=== PATIENT | male | born 1950 | race Caucasian/White ===

== ENCOUNTER 2016-09-06 15:54 | Emergency (ER) | payer BC ==
[~2016-09-06] VITALS: Ht 165.1 cm; Wt 72.5 kg
[~2016-09-06 15:54] MED LIST: CODCAP PO; FISH100020 PO; GARL10CA2 PO; LISI10TA3 PO; MULTTAB23 PO; POTA99TA PO; ROSU40 PO; XARE20TA PO
[2016-09-06 15:56] VITALS: BP 175/85; PULSE 60; RESP 20; TEMP 97.7; O2SAT 97
--- NOTE | 2016-09-06 16:32 | PD ---
Physical Exam Date Seen by Provider: Sep 06, 2016 Time Seen by Provider: 16:30 Narrative 65 year old male presents to the emergency department for evaluation of dizziness that started at approximately 2pm. He states he felt lightheaded and like he was going to have a syncopal episode, but did not. He states symptoms are improved now. He denies headache, fevers, chest pain, shortness of breath. Vital signs reviewed. Patient awaiting bed placement. Data Data Last Documented VS Vital Signs Date Time Temp Pulse Resp B/P Pulse Ox O2 Delivery O2 Flow Rate FiO2 09/06/16 15:56 97.7 60 20 175/85 97 Room Air [facility] Supervised Visit with LUIS: Stephanie Su Sep 06, 2016 16:32
--- NOTE | 2016-09-06 17:35 | PD ---
HPI Chief Complaint: Dizziness Time Seen by Provider: 17:29 Travel History International Travel<30 days: No Contact w/Intl Traveler<30days: No Traveled to known affect area: No History of Present Illness HPI Is a 65-year-old male presents emergency department for presyncopal type symptoms starting approximate 1430 and lasting until 1530. Patient states he was at work and putting some items out for display when suddenly he felt like he was going to pass out. States that he felt his vision was somewhat darker. Denies any focal weakness chest pain shortness of breath abdominal pain. Patient does relate that his lisinopril was recently increased but he was hypertensive during the symptoms. He states currently the symptoms have resolved. He is followed by Dr. Esparza and is scheduled to have an echocardiogram in a few weeks since he "has a weak spot in his heart". PFSH Past Medical History Hx Anticoagulant Therapy: Yes (xarelto--afib) Heart Rhythm Problems: Yes (a-Fib) Cardiovascular Problems: Yes (htn-resolved) Diminished Hearing: No Past Surgical History Tonsillectomy: Yes Social History Alcohol Use: No Tobacco Use: No Substance Use: No Allergies-Medications (Allergen,Severity, Reaction): Coded Allergies: Sulfa (Verified Allergy, Intermediate, rash, 09/06/16) as a child Reported Meds & Prescriptions Reported Meds & Active Scripts Active Lisinopril 10 Mg Tab 10 Mg PO BID Reported Multi For Him 50+ (Multiple Vitamins W/ Minerals) 1 Tab Tab 1 Tab PO DAILY Fish Oil 1000 mg ([place]-3 Fatty Acids) 1 Cap Cap 2,000 Mg PO DAILY Potassium 99 Mg Tab 99 Mg PO DAILY Cod Liver Oil 1 Cap 2 Cap PO DAILY Xarelto (Rivaroxaban) 20 Mg Tab 20 Mg PO HS Crestor (Rosuvastatin Calcium) 40 Mg Tab 40 Mg PO HS Review of Systems Except as stated in HPI: all other systems reviewed are Neg Physical Exam Narrative GENERAL: Developed well-nourished no apparent distress. SKIN: Focused skin assessment warm/dry. HEAD: Atraumatic. Normocephalic. EYES: Pupils equal and round. No scleral icterus. No injection or drainage. ENT: No nasal bleeding or discharge. Mucous membranes pink and moist. NECK: Trachea midline. No JVD. CARDIOVASCULAR: Irregularly irregular and bradycardic. No murmur appreciated. No edema, 2+ bilateral equal pulses in all 4 extremities. RESPIRATORY: No accessory muscle use. Clear to auscultation. Breath sounds equal bilaterally. GASTROINTESTINAL: Abdomen soft, non-tender, nondistended. Hepatic and splenic margins not palpable. MUSCULOSKELETAL: No obvious deformities. No clubbing. No cyanosis. No edema. NEUROLOGICAL: Alert and awake and oriented. Cranial nerves II through XII are grossly intact and nonfocal, 5 out of 5 strength in all 4 extremity's. Cerebellar testing normal. Sensory intact in all 4 extremity's. PSYCHIATRIC: Appropriate mood and affect; insight and judgment normal. Data Data Last Documented VS Vital Signs Date Time Temp Pulse Resp B/P Pulse Ox O2 Delivery O2 Flow Rate FiO2 09/06/16 20:00 56 16 140/71 96 09/06/16 17:50 Room Air 09/06/16 15:56 97.7 Orders Electrocardiogram (09/06/16 ) Ckmb (Isoenzyme) Profile (09/06/16 17:46) Complete Blood Count With Diff (09/06/16 17:46) Comprehensive Metabolic Panel (09/06/16 17:46) Magnesium (Mg) (09/06/16 17:46) Prothrombin Time / Inr (Pt) (09/06/16 17:46) Act Partial Throm Time (Ptt) (09/06/16 17:46) Troponin I (09/06/16 17:46) Chest, Single Ap (09/06/16 17:46) Ecg Monitoring (09/06/16 17:46) Bilateral Bp Monitoring (09/06/16 17:46) Iv Access Insert/Monitor (09/06/16 17:46) Oximetry (09/06/16 17:46) Oxygen Administration (09/06/16 17:46) Sodium Chloride 0.9% Flush (Ns Flush) (09/06/16 18:00) Labs Laboratory Tests Test 09/06/16 17:50 White Blood Count 7.6 TH/MM3 Red Blood Count 4.65 MIL/MM3 Hemoglobin 14.2 GM/DL Hematocrit 43.0 % Mean Corpuscular Volume 92.4 FL Mean Corpuscular Hemoglobin 30.5 PG Mean Corpuscular Hemoglobin 33.0 % Concent Red Cell Distribution Width 13.5 % Platelet Count 142 TH/MM3 Mean Platelet Volume 9.2 FL Neutrophils (%) (Auto) 68.1 % Lymphocytes (%) (Auto) 18.0 % Monocytes (%) (Auto) 11.0 % Eosinophils (%) (Auto) 2.0 % Basophils (%) (Auto) 0.9 % Neutrophils # (Auto) 5.2 TH/MM3 Lymphocytes # (Auto) 1.4 TH/MM3 Monocytes # (Auto) 0.8 TH/MM3 Eosinophils # (Auto) 0.1 TH/MM3 Basophils # (Auto) 0.1 TH/MM3 CBC Comment DIFF FINAL Differential Comment Prothrombin Time 11.4 SEC Prothromb Time International 1.0 RATIO Ratio Activated Partial 25.8 SEC Thromboplast Time Sodium Level 144 MEQ/L Potassium Level 3.9 MEQ/L Chloride Level 110 MEQ/L Carbon Dioxide Level 26.9 MEQ/L Anion Gap 7 MEQ/L Blood Urea Nitrogen 19 MG/DL Creatinine 0.94 MG/DL Estimat Glomerular Filtration 80 ML/MIN Rate Random Glucose 93 MG/DL Calcium Level 9.1 MG/DL Magnesium Level 2.2 MG/DL Total Bilirubin 0.3 MG/DL Aspartate Amino Transf 17 U/L (AST/SGOT) Alanine Aminotransferase 27 U/L (ALT/SGPT) Alkaline Phosphatase 101 U/L Total Creatine Kinase 76 U/L Troponin I 0.03 NG/ML Total Protein 6.7 GM/DL Albumin 3.5 GM/DL MDM Medical Decision Making Medical Screen Exam Complete: Yes Emergency Medical Condition: Yes Interpretation(s) EKG shows age fibrillation with left bundle branch block, left axis deviation and poor R-wave progression. No Torey's criteria. Overall rate is 46. QTC is at upper limits of normal. Comparison to 04/23/2016 today's EKG is slower otherwise no change. This abnormal EKG. Differential Diagnosis ACS, AMI, CHF, presyncope, anemia, electro-light abnormality. Narrative Course Patient was roomed in the emergency department, significant findings of abnormal EKG with bradycardia nature fibrillation and conduction abnormality. No ischemia visible on EKG and other than a slower rate no change from previous. Patient does have cardiomegaly on chest x-ray without acute pleural effusion. He appears well and in no apparent distress at this time. Troponin negative elect lites within normal limits CBC normal. His cousin the patient that given his cardiac history and his symptomology would recommend having an echocardiogram. Patient states he has an appointment in 6 days for an outpatient echocardiogram for his cardiology is Dr. Esparza. Discussed that waiting until having this echocardiogram may put him at risks of major adverse cardiac event and the risk of and permanent disability comes with it. Patient verbalized understanding and acceptance this risk and would like to follow up outpatient with his senior integration developer and do an outpatient echocardiogram. I think this is reasonable as it is short-term follow-up discussed with the patient that if any of his symptoms should recur that he should come back to the emergent department for evaluation or consider calling 911. He will be discharged home as he understands the risk he is taking. Discussed my recommendation for following up with Dr. Esparza and an earlier interval and calling him as soon as possible for follow-up. Diagnosis Primary Impression: Near syncope Additional Instructions: Recommend he call Dr. Esparza in your primary care provider tomorrow. If you have any chest pain and any shortness of breath any fatigue any weakness any additional blackout like symptoms I encouraged her strongly to return to the emergency department for further evaluation. Disposition: 01 DISCHARGE HOME Condition: Stable Mike Erickson MD Sep 06, 2016 17:35
[2016-09-06 17:50] VITALS: BP_SYST 145; BP_SYST 174; BP_DIAS 74; BP_DIAS 86; PULSE 52; RESP 16; O2SAT 98
[2016-09-06] MEDS ORDERED: SODIUM CHLORIDE 0.9% FLUSH 10 ML FLUSH IVF PRN (18:00)
[2016-09-06 18:23] LABS: AUTOMATED NEUTROPHIL # 5.2 TH/MM3 (1.8-7.7); BASOPHIL # 0.1 TH/MM3 (0-0.2); BASOPHIL % 0.9 % (0.0-2.0); EOSINOPHIL # 0.1 TH/MM3 (0-0.4); HEMO FLAGS DIFF FINAL; LYMPHOCYTE # 1.4 TH/MM3 (1.0-4.8); MEAN CELL VOLUME 92.4 FL (80.0-100.0); MEAN CORPUSCULAR HEMOGLOBIN 30.5 PG (27.0-34.0); NEUT % 68.1 % (16.0-70.0); PLATELET COUNT 142 TH/MM3 (150-450); RED BLOOD COUNT 4.65 MIL/MM3 (4.50-5.90); RED CELL DISTRIBUTION WIDTH 13.5 % (11.6-17.2); WHITE BLOOD COUNT 7.6 TH/MM3 (4.0-11.0)
[2016-09-06 18:50] LABS: APTT (PATIENT) 25.8 SEC (24.3-30.1); PROTHROMBIN TIME - PATIENT 11.4 SEC (9.8-11.6)
[2016-09-06 19:04] LABS: ANION GAP 7 MEQ/L (5-15); AST (GOT) 17 U/L (15-37); BICARBONATE 26.9 MEQ/L (21.0-32.0); BLOOD UREA NITROGEN 19 MG/DL (7-18); CHLORIDE 110 MEQ/L (98-107); GLOMERULAR FILTRATION RATE 80 ML/MIN (>89); MAGNESIUM 2.2 MG/DL (1.5-2.5); POTASSIUM 3.9 MEQ/L (3.5-5.1); SODIUM (NA) 144 MEQ/L (136-145)
[2016-09-06 19:09] LABS: ALKALINE PHOSPHATASE 101 U/L (45-117); ALT (GPT) 27 U/L (12-78); TOTAL BILIRUBIN ADULT 0.3 MG/DL (0.2-1.0)
[2016-09-06 19:10] LABS: CREATINE KINASE 76 U/L (39-308)
--- NOTE | 2016-09-06 19:47 | RADRPT ---
EXAM DATE/TIME: 09/06/2016 18:11 [facility] COMPARISON: CHEST PA & LAT, April 23, 2016, 14:53. INDICATIONS : Syncope. MEDICAL HISTORY : None. SURGICAL HISTORY : None. ENCOUNTER: Initial ACUITY: 1 day PAIN SCORE: 0/10 LOCATION: Bilateral chest FINDINGS: A single view of the chest demonstrates the lungs to be symmetrically aerated without evidence of mas s, infiltrate or effusion. The cardiomediastinal contours are unremarkable. Osseous structures are intact. CONCLUSION: No acute disease. Krishan Tatum MD on September 06, 2016 at 19:43 Board Certified Radiologist. This report was verified electronically.
[2016-09-06 20:00] VITALS: BP 140/71
--- NOTE | 2016-09-07 15:52 | EKG ---
Date Performed: 09/06/2016 Time Performed: 17:41:26 PTAGE: 65 years EKG: ATRIAL FIBRILLATION WITH SLOW VENTRICULAR RESPONSE MARKED LEFT AXIS DEVIATION LEFT BUNDLE B RANCH BLOCK ABNORMAL ECG PREVIOUS TRACING : 04/23/2016 14.06 Compared to previous tracing, heart rate somewhat slower, o therwise no significant change. DOCTOR: Nabil Barnett Interpretating Date/Time 09/07/2016 15:50:57
== END 2016-09-06 20:02 | disposition home or self-care (01) ==
LOC: NEPD 15:54
DX: R55 Syncope and collapse (principal); I48.91 Unspecified atrial fibrillation; Z79.01 Long term (current) use of anticoagulants; I10 Essential (primary) hypertension; R94.31 Abnormal electrocardiogram [ECG] [EKG]
CPT/HCPCS: 71010; 80053; 82550; 83735; 84484; 85025; 85610; 85730; 93005

== ENCOUNTER 2017-01-31 05:05 | Inpatient (IN) | payer BC ==
[~2017-01-31] VITALS: Ht 165.1 cm; Wt 76.9 kg
[~2017-01-31 05:05] MED LIST changes: +ASPI-110 PO; -CODCAP PO; +CODCAP9 PO; +FERR325C PO; -GARL10CA2 PO; +LISI-515 PO; -LISI10TA3 PO; -POTA99TA PO; +POTA99TA4 PO
[2017-01-31] MEDS ORDERED: CHLORHEXIDINE GLUCONATE 2 % 1 PACK (2 CLOTHS) TOPICAL PRN (05:30)
[2017-01-31] MEDS ORDERED: METOPROLOL TARTRATE 25 MG TAB PO PRN (05:30)
[2017-01-31] MEDS ORDERED: POVIDONE IODINE 5% (ANTISEPSIS KIT) 4 APPLICATIONS EACH NARE PRN (05:30)
[2017-01-31] MEDS ORDERED: INSULIN HUMAN REGULAR 1,000 UNITS/10 ML VIAL SQ PRN (05:30)
[2017-01-31] MEDS ORDERED: SODIUM CHLORID 0.9% 500 ML IV PRN (05:30)
[2017-01-31] MEDS ORDERED: LACTATED RINGER'S 1000 ML IV PRN (05:30)
[2017-01-31] MEDS ORDERED: TRANEXAMIC PERI-ARTICULAR 3,000 MG/NS 100 ML P-ARTICULR SCH ×2 (05:45)
[2017-01-31] MEDS ORDERED: SODIUM CHLORIDE 0.9% IV SCH (05:45)
[2017-01-31] MEDS ORDERED: ceFAZolin 2 GM PREMIX 50 ML IV SCH (05:45)
[2017-01-31] MEDS ORDERED: DEXAMETHASONE SOD PHOS 20 MG/5 ML VIAL IV PUSH SCH (05:45)
[2017-01-31] MEDS ORDERED: CHLORHEXIDINE GLUCONATE 4% SOLN 120 ML BTL TOPICAL SCH (05:45)
[2017-01-31] MEDS ORDERED: TRANEXAMIC ACID IV SCH (05:45)
[2017-01-31] MEDS ORDERED: VANCOMYCIN 1000 MG/NS 250 ML (for <70 kg) IV SCH ×2 (05:45)
[2017-01-31] MEDS ORDERED: ROPIVACAINE PERI-ARTICULAR INJECTION. P-ARTICULR SCH ×5 (05:45)
[2017-01-31] MEDS ORDERED: POVIDONE IODINE 7.5% SCRUB 118 ML BOTTLE TOPICAL SCH (05:45)
[2017-01-31] MEDS ORDERED: GENTAMICIN SULFATE 80 MG/2 ML VIAL ONE (06:02)
[2017-01-31] MEDS ORDERED: FAMOTIDINE 20 MG/2 ML VIAL ONE (06:47)
[2017-01-31] MEDS ORDERED: HYDR-3288 PO (06:57)
[2017-01-31] MEDS ORDERED: XARE10TA PO (06:58)
[2017-01-31] MEDS ORDERED: MORPHINE SULFATE 4 MG/ML INJ IV PUSH PRN (07:00)
[2017-01-31] MEDS ORDERED: Post-op Orders (for Pharmacy) MISC XX ONE (07:00)
[2017-01-31] MEDS ORDERED: BISACODYL 10 MG SUPP RECTAL PRN (07:00)
[2017-01-31] MEDS ORDERED: diphenhydrAMINE HCL 50 MG/ML VIAL IV PRN (07:00)
[2017-01-31] MEDS ORDERED: ZOLPIDEM TARTRATE 5 MG TAB PO PRN (07:00)
[2017-01-31] MEDS ORDERED: ONDANSETRON HCL 4 MG/2 ML VIAL IVP PRN (07:00)
[2017-01-31] MEDS ORDERED: ACETAMINOPHEN/HYDROcodone 325 MG/7.5 MG TAB PO PRN ×2 (07:00)
[2017-01-31] MEDS ORDERED: SODIUM CHLORIDE 0.9% FLUSH 10 ML FLUSH IV FLUSH PRN (07:00)
--- NOTE | 2017-01-31 07:12 | HHI.DCPOC ---
Discharge Care Plan Diagnosis: (1) Primary localized osteoarthrosis, lower leg Your Health Problems Are: Difficulty with ADL Goals to Promote Your Health * To prevent worsening of your condition and complications * To maintain your health at the optimal level Directions to Meet Your Goals Take your medications as prescribed Follow your dietary instruction Follow activity as directed Keep your appointments as scheduled Take your immunizations and boosters as scheduled If your symptoms worsen call your PCP, if no PCP go to Urgent Care Center or Emergency Room Smoking is Dangerous to Your Health. Avoid second hand smoke Call the 24-hour hour crisis hotline for domestic abuse at [place] Jan 31, 2017 07:12
--- NOTE | 2017-01-31 07:13 | HHI.FF ---
Face to Face Verification Diagnosis: (1) Primary localized osteoarthrosis, lower leg Physical Therapy Gait training, Safety evaluation, Transfer training, bed to chair Knee: Total knee, Protocol: Right, Full weight bearing Right LE Weight Bearing: WB as tolerated Nursing RN: 3 days/week x 2 weeks Nursing: Dressing changes Dressing Changes: Daily dressing change I have seen patient Jose Pena on 01/31/17. My clinical findings support the need for the requested home health care services because: Limited ability to care for self High risk of falls I certify that my clinical findings support that this patient is homebound because: Post-op weakness Unsteady gait/balance Mal Arias Jan 31, 2017 07:13
[2017-01-31] MEDS ORDERED: WALKER WHEELS/F1 MIS (07:15)
[2017-01-31] MEDS ORDERED: COMMODE 3-IN-11 MIS (07:15)
[2017-01-31] MEDS ORDERED: CPMMACHINE (07:15)
[2017-01-31] MEDS ORDERED: NON-FORMULARY DRUG (Potassium 1 TAB) PO SCH (09:00)
[2017-01-31] MEDS: SODIUM CHLORIDE 0.9% FLUSH 10 ML FLUSH IV FLUSH SCH ×2 (09:00→22:18)
[2017-01-31] MEDS ORDERED: DO NOT ADM ANY ANTICOAGULANT DRUGS PRN (09:01)
--- NOTE | 2017-01-31 10:00 | RADRPT ---
EXAM DATE/TIME: 01/31/2017 09:30 [facility] COMPARISON: No previous studies available for comparison. INDICATIONS : Post-op right total knee replacement. MEDICAL HISTORY : None. SURGICAL HISTORY : Total knee replacement, right. ENCOUNTER: Initial ACUITY: 1 day PAIN SCORE: 0/10 LOCATION: Right knee. FINDINGS: AP and lateral views of the knee following arthroplasty reveals a prosthesis in anatomic alignment. F racture is not appreciated. CONCLUSION: Status post total knee arthroplasty. Yahir Reed MD FACR Board Certified Radiologist. This report was verified electronically.
[2017-01-31] MEDS ORDERED: BUPIVACAINE LIPOSOME PF 1.3% 20 ML VIAL ONE (10:18)
--- NOTE | 2017-01-31 10:22 | PD.ORT.PN ---
Subjective Subjective Remarks sx Friday morning, R TKA Objective Vitals Vital Signs Date Time Temp Pulse Resp B/P (MAP) Pulse Ox O2 Delivery O2 Flow Rate FiO2 01/31/17 09:06 97.5 64 16 107/56 (73) 91 Room Air 01/31/17 06:04 98.3 62 20 145/78 (100) 98 I/O 01/30/17 01/30/17 01/30/17 01/31/17 01/31/17 01/31/17 07:00 15:00 23:00 07:00 15:00 23:00 Intake Total 1100 ml Output Total 650 ml Balance 450 ml Other 1100 ml Output Urine Total 600 ml Estimated Blood Loss 50 ml Imaging Last 24 hours Impressions Knee X-Ray 01/31/17 0654 Signed Impressions: Service Date/Time: Tuesday, January 31, 2017 09:30 - CONCLUSION: Status post total knee arthroplasty. Yahir Reed MD Assessment & Plan Ortho Post Op Day #: 0 Problem List: Assessment and Plan s/p R TKA POD#0 wbat daily dressing changes xarelto d/c planning home vs snf [id number] signed rx in chart f/up dr. nguyen 2 weeks Mal Arias Jan 31, 2017 10:22
[2017-01-31] MEDS: FERROUS SULFATE 325 MG (65 MG ELEMENTAL IRON) TAB PO SCH (11:00)
[2017-01-31] MEDS: LISINOPRIL 20 MG TAB PO SCH (11:00)
[2017-01-31] MEDS ORDERED: ceFAZolin INJ 1,000 MG VIAL IV ONE (12:00)
[2017-01-31] MEDS: SODIUM CHLOR 0.9% 1000 ML INJ 1,000 ML IV SCH ×2 (12:00→20:00)
[2017-01-31 12:24] VITALS: BP 134/78; PULSE 55; RESP 18; TEMP 96; O2SAT 97
--- NOTE | 2017-01-31 13:46 | HHI.HP ---
[facility] Service Family Medicine Primary Care Physician Morro Mcmahon , R3 MD Alber Admission Diagnosis Right Knee Arthroplasty Diagnoses: Chief Complaint: Here for Right Knee Arthroplasty International Travel<30 Days: No Contact w/Intl Traveler<30days: No Known Affected Area: No History of Present Illness Patient is a 66-year-old male with a past medical history significant for atrial fibrillation, hypertension, dyslipidemia, and osteoarthritis who presents today for right knee arthroplasty with Dr. Drake. He is currently postop and had his procedure this morning. He states that he is still waiting for the anesthesia to wear off and he still feels sleepy, however he is tolerating by mouth and denies any concerns at this time. He is hopeful that he will be discharged home tomorrow. (Dunia Talley MD, R3) Review of Systems Constitutional: COMPLAINS OF: Fatigue, DENIES: Fever, Chills Endocrine: DENIES: Polydipsia Eyes: DENIES: Blurred vision, Diplopia Ears, nose, mouth, throat: DENIES: Oral lesions, Throat pain Respiratory: DENIES: Cough, Wheezing, Shortness of breath Cardiovascular: DENIES: Chest pain, Palpitations Gastrointestinal: DENIES: Abdominal pain, Nausea, Vomiting Genitourinary: DENIES: Hematuria, Dysuria Musculoskeletal: COMPLAINS OF: Joint pain, Muscle aches Integumentary: DENIES: Rash Hematologic/lymphatic: DENIES: Bruising Neurologic: DENIES: Headache, Paresthesias Psychiatric: DENIES: Anxiety, Confusion (Dunia Talley MD, R3) Past Family Social History Past Medical History Atrial Fibulation controlled HTN Dyslipidemia Osteoarthritis of the right knee Past Surgical History Tonsillectomy Reported Medications Reported Meds & Active Scripts Active Xarelto (Rivaroxaban) 10 Mg Tab 10 Mg PO DAILY [place] (Hydrocodone-Acetaminophen) 7.5-325 mg Tab 1-2 Tab PO Q6H PRN Reported Lisinopril 20 Mg Tab 20 Mg PO DAILY Potassium 99 Mg Tablet 1 Tab PO DAILY Cod Liver Oil 1,250-130 Unit Cap Unknown Dose PO DAILY Aspirin 81 (Aspirin) 81 Mg Tabdr 81 Mg PO DAILY Iron (Ferrous Sulfate) 325 Mg Cap 325 Mg PO DAILY Multi For Him 50+ (Multiple Vitamins W/ Minerals) 1 Tab Tab 1 Tab PO DAILY Fish Oil 1000 mg ([place]-3 Fatty Acids) 1 Cap Cap 2,000 Mg PO DAILY Xarelto (Rivaroxaban) 20 Mg Tab 20 Mg PO HS Crestor (Rosuvastatin Calcium) 40 Mg Tab 40 Mg PO HS (Dunia Talley MD, R3) Allergies: Coded Allergies: Sulfa (Sulfonamide Antibiotics) (Unverified Allergy, Intermediate, rash, ) as a child Active Ordered Medications Current Medications Medications (Trade) Dose Ordered Sig/Saji Route Start Time Stop Time Status Last Admin Lactated Ringer's 1,000 ml @ 30 mls/hr Q24H PRN IV 01/31/17 05:30 02/03/17 05:29 01/31/17 05:45 Sodium Chloride 500 ml @ 30 mls/hr [id number] PRN IV 01/31/17 05:30 02/03/17 05:29 (Lopressor) 25 mg PROFESSIONAL NURSING ASSISTANT PRN PO 01/31/17 05:30 02/03/17 05:29 (Betadine 5% Antisepsis Kit) 1 applic PROFESSIONAL NURSING ASSISTANT PRN EACH NARE 01/31/17 05:30 02/03/17 05:29 01/31/17 05:55 (Chlorhexidine 2% Cloth) 3 pack PROFESSIONAL NURSING ASSISTANT PRN TOPICAL 01/31/17 05:30 02/03/17 05:29 01/31/17 05:15 (NovoLIN R INJ) See Protocol Table ... PROFESSIONAL NURSING ASSISTANT PRN SQ 01/31/17 05:30 02/03/17 05:29 (Betadine 7.5% Scrub) 1 applic ONCE TOPICAL 01/31/17 05:45 02/03/17 05:44 (Hibiclens 4% Top Soln) 1 applic ONCE TOPICAL 01/31/17 05:45 02/03/17 05:44 01/31/17 05:30 Vancomycin HCl 1000 mg/Sodium Chloride 250 ml @ 250 mls/hr PROFESSIONAL NURSING ASSISTANT IV 01/31/17 05:45 02/03/17 05:44 01/31/17 06:12 Tranexamic Acid 1109 mg/Sodium Chloride 111.09 ml @ 200 mls/ hr ONCE IV 01/31/17 05:45 01/31/17 21:00 01/31/17 07:28 Ropivacaine 24.63 ml/Ketorolac Tromethamine 30 mg/Epinephrine HCl 0.5 mg/ Clonidine 80 mcg/ Sodium Chloride 100 ml @ 200 mls/hr ONCE P-ARTICULR 01/31/17 05:45 02/01/17 05:44 Tranexamic Acid 3000 mg/Sodium Chloride 130 ml @ 260 mls/hr ONCE P-ARTICULR 01/31/17 05:45 01/31/17 21:00 (Decadron Inj) 10 mg ONCE IV PUSH 01/31/17 05:45 01/31/17 21:00 01/31/17 06:00 (Prinivil) 20 mg DAILY PO 01/31/17 11:00 (Ferrous Sulfate) 325 mg DAILY PO 01/31/17 11:00 (Lipitor) 80 mg HS PO 01/31/17 21:00 Sodium Chloride 1,000 ml @ 100 mls/hr Q10H IV 01/31/17 10:00 01/31/17 12:00 (NS Flush) 2 ml UNSCH PRN IV FLUSH 01/31/17 07:00 (NS Flush) 2 ml BID IV FLUSH 01/31/17 09:00 Cefazolin Sodium 1000 mg/Sodium Chloride 100 ml @ 200 mls/hr Q6H IV 01/31/17 12:00 02/01/17 00:29 01/31/17 12:00 (Xarelto) 10 mg Q24H PO 02/01/17 08:00 (Morphine Inj) 3 mg Q3H PRN IV PUSH 01/31/17 07:00 ([place] 7.5-325 Mg) 1 tab Q4H PRN PO 01/31/17 07:00 ([place] 7.5-325 Mg) 2 tab Q4H PRN PO 01/31/17 07:00 (Theragran M Tab) 1 tab BID PO 02/01/17 21:00 04/02/17 20:59 (Zofran Inj) 4 mg Q6H PRN IVP 01/31/17 07:00 (Colace) 100 mg BID PO 02/01/17 21:00 (Ambien) 5 mg HS PRN PO 01/31/17 07:00 (Dulcolax Supp) 10 mg DAILY PRN RECTAL 01/31/17 07:00 (Benadryl Inj) 25 mg Q6H PRN IV 01/31/17 07:00 Miscellaneous Information ALL NURSING DEPARTME... UNSCH PRN .XX 01/31/17 09:01 02/01/17 09:00 Family History Both parents of MA Mother with Breast cancer Social History Live in a house in [place], with and cats 2 Kids Works at [employer] Denies smoking Denies drinking Denies illegal drugs (Dunia Talley MD, R3) Physical Exam Vital Signs Vital Signs Date Time Temp Pulse Resp B/P (MAP) Pulse Ox O2 Delivery O2 Flow Rate FiO2 01/31/17 12:05 64 16 121/63 (82) 98 Nasal Cannula 2 01/31/17 11:00 60 16 99/59 (72) 99 Nasal Cannula 2 01/31/17 10:00 59 16 105/60 (75) 97 Nasal Cannula 2 01/31/17 09:45 59 16 109/59 (76) 97 Nasal Cannula 2 01/31/17 09:30 61 16 102/58 (73) 96 Nasal Cannula 2 01/31/17 09:15 69 16 111/58 (75) 95 Nasal Cannula 2 01/31/17 09:06 97.5 64 16 107/56 (73) 91 Room Air 01/31/17 06:04 98.3 62 20 145/78 (100) 98 Physical Exam GENERAL: This is a well-nourished, well-developed male patient, in no apparent distress. SKIN: No rashes, ecchymoses or lesions. Cool and dry. HEAD: Atraumatic. Normocephalic. No temporal or scalp tenderness. EYES: Pupils equal round and reactive. Extraocular motions intact. No scleral icterus. No injection or drainage. ENT: Nose without bleeding, purulent drainage or septal hematoma. Throat without erythema, tonsillar hypertrophy or exudate. Uvula midline. Airway patent. NECK: Trachea midline. No JVD or lymphadenopathy. Supple, nontender, no meningeal signs. CARDIOVASCULAR: Irregularly irregular rate and rhythm without murmurs, gallops, or rubs. RESPIRATORY: Clear to auscultation. Breath sounds equal bilaterally. No wheezes , rales, or rhonchi. GASTROINTESTINAL: Abdomen soft, non-tender, nondistended. No hepato-splenomegaly , or palpable masses. No guarding. MUSCULOSKELETAL: Right leg covered in bandage, resting on mobilizer. No calf tenderness. NEUROLOGICAL: Awake and alert. Cranial nerves II through XII intact. Motor and sensory grossly within normal limits. Normal speech. (Dunia Talley MD, R3) Imaging Last Impressions Knee X-Ray 01/31/17 0654 Signed Impressions: Service Date/Time: Tuesday, January 31, 2017 09:30 - CONCLUSION: Status post total knee arthroplasty. Yahir Reed MD (Dunia Talley MD, R3) Caprini VTE Risk Assessment Caprini VTE Risk Assessment: Mod/High Risk (score >= 2) Caprini Risk Assessment Model Point Value = 1 Point Value = 2 Point Value = 3 Point Value = 5 Age 41-60 Minor surgery BMI > 25 kg/m2 Swollen legs Varicose veins or History of unexplained or recurrent spontaneous Oral contraceptives or hormone replacement Sepsis (< 1 month) Serious lung disease, including pneumonia (< 1 month) Abnormal pulmonary function Acute myocardial infarction Congestive heart failure (< 1 month) History of inflammatory bowel disease Medical patient at bed rest Age 61-74 Arthroscopic surgery Major open surgery (> 45 min) Laparoscopic surgery (> 45 min) Malignancy Confined to bed (> 72 hours) Immobilizing plaster cast Central venous access Age >= 75 History of VTE Family history of VTE Factor V Leiden Prothrombin [id number] Lupus anticoagulant Anticardiolipin antibodies Elevated serum homocysteine Heparin-induced thrombocytopenia Other congenital or acquired thrombophilia Stroke (< 1 month) Elective arthroplasty Hip, pelvis, or leg fracture Acute spinal cord injury (< 1 month) Prophylaxis Regimen Total Risk Factor Score Risk Level Prophylaxis Regimen 0-1 Low Early ambulation 2 Moderate Order ONE of the following: *Sequential Compression Device (SCD) *Heparin 5000 units SQ BID 3-4 Higher Order ONE of the following medications: *Heparin 5000 units SQ TID *Enoxaparin/Lovenox 40 mg SQ daily (WT < 150 kg, CrCl > 30 mL/min) *Enoxaparin/Lovenox 30 mg SQ daily (WT < 150 kg, CrCl > 10-29 mL/min) *Enoxaparin/Lovenox 30 mg SQ BID (WT < 150 kg, CrCl > 30 mL/min) AND/OR *Sequential Compression Device (SCD) 5 or more Highest Order ONE of the following medications: *Heparin 5000 units SQ TID (Preferred with Epidurals) *Enoxaparin/Lovenox 40 mg SQ daily (WT < 150 kg, CrCl > 30 mL/min) *Enoxaparin/Lovenox 30 mg SQ daily (WT < 150 kg, CrCl > 10-29 mL/min) *Enoxaparin/Lovenox 30 mg SQ BID (WT < 150 kg, CrCl > 30 mL/min) AND *Sequential Compression Device (SCD) (Dunia Talley MD, R3) Assessment and Plan Assessment and Plan Patient is a 66-year-old male with a past medical history significant for atrial fibrillation, hypertension, dyslipidemia, and osteoarthritis who presents today for right knee arthroplasty with Dr. Drake. Code Status Full Code Discussed Condition With sdw Dr. Cronin (Dunia Talley MD, R3) Attending Attestation Patient seen and examined. Case reviewed and discussed with the resident team. Agree with plan of care as discussed with me and documented in the resident note. pt seen with Dr Talley today. He feels well and had no complaints except being sleepy. He does hope to go home tomorrow. (Anita Cronin MD) Problem List: (1) S/P total knee arthroplasty ICD Codes: Z96.659 - Presence of unspecified artificial knee joint Status: Acute Plan: POD #0 s/p Total right knee arthroplasty by Dr. Drake Weightbearing as tolerated Daily dressing changes Resume Xarelto 24 hours postoperatively Follow-up with Dr. Drake in 2 weeks (2) Atrial fibrillation ICD Codes: I48.91 - Unspecified atrial fibrillation Status: Chronic Plan: Xarelto held preoperatively, will resume 24 hours postoperatively (3) HLD (hyperlipidemia) ICD Codes: E78.5 - Hyperlipidemia, unspecified Status: Chronic Plan: Continue atorvastatin 80 mg by mouth at bedtime (4) HTN (hypertension) ICD Codes: I10 - Essential (primary) hypertension Status: Chronic Plan: Blood pressure stable Continue home dose of lisinopril 20 mg by mouth daily (5) Nutrition, metabolism, and development symptoms ICD Codes: R63.8 - Other symptoms and signs concerning food and fluid intake Plan: Fluids: NS @ 100ml/hr until tolerating PO well Electrolytes: labs pending, continue to monitor Nutrition: Regular Basic Diet DVT PPx: SCD's, resume Xarelto 24 hours postoperatively (Dunia Talley MD, R3) Problem Qualifiers (1) S/P total knee arthroplasty: Qualified Codes: Z96.651 - Presence of right artificial knee joint (2) Atrial fibrillation: Qualified Codes: I48.0 - Paroxysmal atrial fibrillation (3) HLD (hyperlipidemia): Qualified Codes: E78.5 - Hyperlipidemia, unspecified (4) HTN (hypertension): Qualified Codes: I10 - Essential (primary) hypertension Dunia Talley MD, R3 Jan 31, 2017 13:46 Anita Cronin MD Jan 31, 2017 14:15
[2017-01-31] MEDS ORDERED: PROPOFOL 200 MG/20 ML AMP IV ONE (14:13)
[2017-01-31] MEDS ORDERED: ePHEDrine/NS 25 MG/5 ML SYR IV ONE (14:13)
[2017-01-31] MEDS ORDERED: ONDANSETRON HCL 4 MG/2 ML VIAL IV PUSH ONE (14:13)
[2017-01-31 16:32] VITALS: O2SAT 95
[2017-01-31 16:33] VITALS: BP 132/85; PULSE 60; RESP 18; TEMP 98.1; O2SAT 97
--- NOTE | 2017-01-31 17:46 | MP ---
cc: BELEM ALBARADO DATE OF SURGERY 01/31/17 PREOPERATIVE DIAGNOSIS Right knee osteoarthritis POSTOPERATIVE DIAGNOSIS Right knee osteoarthritis PROCEDURE Right total knee arthroplasty SURGEON Dr. Altagracia Albarado [employer] HEL[employer] ELIANA Cabrera ANESTHESIA Spinal with a femoral nerve adductor canal block. ESTIMATED BLOOD LOSS 50 mL. TOURNIQUET TIME 49 minutes at 250 mmHg COMPLICATIONS None. IMPLANTED USED DePuy attune size six posterior stabilized femoral component, size five rotating platform tibia baseplate, size 5 mm polyethylene tibial insert, size 38 patella. JUSTIFICATION This patient is a 66-year-old male with history of severe end-stage osteoarthritis involving the right knee. He has severe disabling pain with standing, walking, ambulation and weight bearing activities and even pain at rest. He has failed greater than three months of nonoperative conservative treatment to include medication therapy, injections, ambulatory assistive aids, home exercise program, activity modification. The patient is not overweight. X-rays of the right knee reveal severe end-stage osteoarthritis, [id number] joint space narrowing, subchondral sclerosis, subchondral cyst osteophyte formation with varus deformity. The patient was counseled as to risks, benefits and alternatives to a total knee arthroplasty. The risks were discussed which include but limited to anesthesia, bleeding, ____ damage to nerves, blood vessels, pain, stiffness, failure of components, pulmonary embolism and even . The patient's pain is severe. He favored the benefits over the risks and he did wish to proceed with surgery. A detailed written consent was obtained. PROCEDURE IN DETAIL The patient was identified by name and spinal anesthesia was administered to the patient as well as 2 grams of IV Ancef and 1 gram of IV vancomycin. The patient then had an adductor canal femoral nerve block performed. A well-padded tourniquet was placed on the right thigh. The right lower extremity was prepped and draped using isopropyl alcohol, Hibiclens solution and DuraPrep solution. After a time-out was performed, an Esmarch bandage was used to exsanguinate the right lower extremity. Tourniquet was inflated to 250 mmHg. A longitudinal incision was made over the anterior aspect of the right knee. A medial parapatellar arthrotomy was performed. The patella was everted. A patellar resection guide was used to resect 9 mm of patella. The size 38 mm guide was placed and three drill holes were placed. A 38 mm trial fit well. Attention was turned to the femur. Intramedullary guide was placed and the distal femoral guide was set to remove 10 mm of distal femur 5 degrees off the anatomic valgus axis alignment. An oscillating saw was used to perform the distal femoral cut. Attention was turned to the tibia where an extramedullary tibial guide was used to remove 5 mm off the lowest portion of the medial tibial plateau. Tibial guide was pinned in place and tibial cut was performed. A 5-mm spacer block showed full extension. Attention was turned back to the femur. AP sizing block measured a size six. The anterior reference 3 degree external rotation guide was used to pin a size [address] The anterior posterior chamfer cuts were performed. A size six PCL box guide was pinned in place. The PCL was box out with an oscillating saw. The medial lateral meniscus remnants were removed as well as bone and soft tissue debris from posterior portion of the knee. A size five tibia base was pinned in place. trial components were evaluated and final components cemented in place. With the current components, the leg achieved full extension to 0 degrees, flexion to 140. No evidence of tibial lift-off. Varus-valgus balance appeared appropriate and symmetric and the patella was noted to track centrally. Tourniquet was deflated. Bovie cautery was used for hemostasis. Surgical wound was thoroughly irrigated with sterile saline pulse lavage antibiotic impregnated solution. The arthrotomy incision was closed with #1 Vicryl suture. Subcutaneous layer with 2-0 Vicryl suture. Skin was closed with Dermabond. Sterile dressing was applied. The patient tolerated the procedure well with no intraoperative complications noted. Yossi Arias, physician library services assistant, was present during the entire procedure to include patient positioning and the procedure itself. The medical necessity of a physician library services assistant was indicated due to the complexity of the procedure. He assisted with appropriate manipulation of the leg and also retraction of muscle, tendon, bone and neurovascular structures. He assisted with preparation of bone and also implantation of the prosthetic replacement. MD MO Gomez/ /8:39 AM /5:14 PM
[2017-01-31 20:00] VITALS: BP 131/91; PULSE 60; RESP 22; TEMP 95.8; O2SAT 96
[2017-01-31] MEDS ORDERED: ATORVASTATIN 80 MG TAB PO SCH (21:00)
[2017-01-31 21:53] VITALS: O2SAT 98
[2017-02-01] VITALS: BP 112/74; PULSE 61; RESP 20; O2SAT 98
[2017-02-01 04:00] VITALS: BP 112/69; PULSE 57; RESP 20; TEMP 95.3; O2SAT 98
[2017-02-01] MEDS: SODIUM CHLOR 0.9% 1000 ML INJ 1,000 ML IV SCH (05:31)
[2017-02-01 08:00] VITALS: BP 138/96; PULSE 50; RESP 16; TEMP 95.8; O2SAT 96
[2017-02-01] MEDS ORDERED: RIVAROXABAN 10 MG TAB PO SCH (08:00)
--- NOTE | 2017-02-01 08:34 | PD.ORT.PN ---
Subjective Subjective Remarks Patient comfortable at bedside Objective Vitals Vital Signs Date Time Temp Pulse Resp B/P (MAP) Pulse Ox O2 Delivery O2 Flow Rate FiO2 02/01/17 04:00 95.3 57 20 112/69 (83) 98 02/01/17 01:25 Nasal Cannula 1.00 02/01/17 00:00 61 20 112/74 (87) 98 01/31/17 21:53 98 Nasal Cannula 2.00 01/31/17 20:00 95.8 60 22 131/91 (104) 96 01/31/17 16:33 98.1 60 18 132/85 (101) 97 01/31/17 16:32 95 Nasal Cannula 1.00 01/31/17 12:24 96.0 55 18 134/78 (96) 97 01/31/17 12:05 64 16 121/63 (82) 98 Nasal Cannula 2 01/31/17 11:00 60 16 99/59 (72) 99 Nasal Cannula 2 01/31/17 10:00 59 16 105/60 (75) 97 Nasal Cannula 2 01/31/17 09:45 59 16 109/59 (76) 97 Nasal Cannula 2 01/31/17 09:30 61 16 102/58 (73) 96 Nasal Cannula 2 01/31/17 09:15 69 16 111/58 (75) 95 Nasal Cannula 2 01/31/17 09:06 97.5 64 16 107/56 (73) 91 Room Air I/O 01/31/17 01/31/17 01/31/17 02/01/17 02/01/17 02/01/17 07:00 15:00 23:00 07:00 15:00 23:00 Intake Total 1580 ml 1340 ml Output Total 1200 ml 500 ml Balance 380 ml 840 ml Intake Oral 480 ml 240 ml IV Total 1100 ml Other 1100 ml Output Urine Total 1150 ml 500 ml Estimated Blood Loss 50 ml # Bowel Movements 0 0 Imaging Last 24 hours Impressions Knee X-Ray 01/31/17 0654 Signed Impressions: Service Date/Time: Tuesday, January 31, 2017 09:30 - CONCLUSION: Status post total knee arthroplasty. Yahir Reed MD Objective Remarks Right knee dressing CDI Calves soft NVI Assessment & Plan Ortho Post Op Day #: 1 (Right Total Knee Arthroplasty) Problem List: Assessment and Plan s/p R TKA POD #1 wbat daily dressing changes xarelto d/c home todayf f/up dr. nguyen 2 weeks Bryan Wood MD Feb 01, 2017 08:34
[2017-02-01] MEDS: SODIUM CHLORIDE 0.9% FLUSH 10 ML FLUSH IV FLUSH SCH (09:00)
[2017-02-01 09:18] LABS: AUTOMATED NEUTROPHIL # 12.4 TH/MM3 (1.8-7.7); BASOPHIL % 0.1 % (0.0-2.0); HEMATOCRIT 40.3 % (39.0-51.0); HEMO FLAGS DIFF FINAL; LYMPH % 4.6 % (9.0-44.0); LYMPHOCYTE # 0.7 TH/MM3 (1.0-4.8); MEAN CELL VOLUME 92.8 FL (80.0-100.0); MEAN CORPUSCULAR HEMOGLOBIN 31.7 PG (27.0-34.0); MEAN CORPUSCULAR HGB CONC 34.2 % (32.0-36.0); MONO % 8.6 % (0.0-8.0); NEUT % 86.7 % (16.0-70.0); PLATELET COUNT 156 TH/MM3 (150-450); RED BLOOD COUNT 4.34 MIL/MM3 (4.50-5.90); RED CELL DISTRIBUTION WIDTH 13.4 % (11.6-17.2); WHITE BLOOD COUNT 14.3 TH/MM3 (4.0-11.0)
[2017-02-01 09:43] LABS: ANION GAP 7 MEQ/L (5-15); AST (GOT) 15 U/L (15-37); BLOOD UREA NITROGEN 18 MG/DL (7-18); CHLORIDE 105 MEQ/L (98-107); GLOMERULAR FILTRATION RATE 131 ML/MIN (>89); POTASSIUM 4.5 MEQ/L (3.5-5.1); SODIUM (NA) 138 MEQ/L (136-145)
[2017-02-01 09:45] LABS: ALT (GPT) 25 U/L (12-78)
[2017-02-01 09:47] LABS: ALKALINE PHOSPHATASE 95 U/L (45-117); TOTAL BILIRUBIN ADULT 0.4 MG/DL (0.2-1.0)
[2017-02-01] MEDS: FERROUS SULFATE 325 MG (65 MG ELEMENTAL IRON) TAB PO SCH (10:34)
[2017-02-01] MEDS: LISINOPRIL 20 MG TAB PO SCH (10:39)
--- NOTE | 2017-02-01 11:03 | HHI.FPPN ---
Subjective Remarks No acute issues overnight. Vitals are stable, patient remains afebrile. He denies any chest pain, shortness of breath, fever, chills, nausea or vomiting. He is tolerating PO. He feels ready to go home today. Objective Vitals Vital Signs Date Time Temp Pulse Resp B/P (MAP) Pulse Ox O2 Delivery O2 Flow Rate FiO2 02/01/17 08:00 95.8 50 16 138/96 (110) 96 02/01/17 04:00 95.3 57 20 112/69 (83) 98 02/01/17 01:25 Nasal Cannula 1.00 02/01/17 00:00 61 20 112/74 (87) 98 01/31/17 21:53 98 Nasal Cannula 2.00 01/31/17 20:00 95.8 60 22 131/91 (104) 96 01/31/17 16:33 98.1 60 18 132/85 (101) 97 01/31/17 16:32 95 Nasal Cannula 1.00 01/31/17 12:24 96.0 55 18 134/78 (96) 97 01/31/17 12:05 64 16 121/63 (82) 98 Nasal Cannula 2 I/O 01/31/17 01/31/17 01/31/17 02/01/17 02/01/17 02/01/17 07:00 15:00 23:00 07:00 15:00 23:00 Intake Total 1580 ml 1340 ml Output Total 1200 ml 500 ml Balance 380 ml 840 ml Intake Oral 480 ml 240 ml IV Total 1100 ml Other 1100 ml Output Urine Total 1150 ml 500 ml Estimated Blood Loss 50 ml # Bowel Movements 0 0 Result Diagram: 02/01/17 0820 02/01/17 0820 Imaging Last Impressions Knee X-Ray 01/31/17 0654 Signed Impressions: Service Date/Time: Tuesday, January 31, 2017 09:30 - CONCLUSION: Status post total knee arthroplasty. Yahir Reed MD Objective Remarks GENERAL: Well-nourished, well-developed male in NAD. SKIN: Warm and dry. HEAD: Atraumatic. Normocephalic. EYES: Pupils equal and round. No scleral icterus. No injection or drainage. ENT: No nasal bleeding or discharge. Mucous membranes pink and moist. NECK: Trachea midline. No JVD. CARDIOVASCULAR: Regular rate and rhythm. RESPIRATORY: No accessory muscle use. Clear to auscultation. Breath sounds equal bilaterally. GASTROINTESTINAL: Abdomen soft, non-tender, nondistended. Hepatic and splenic margins not palpable. MUSCULOSKELETAL: Right knee in immobilizer. NEUROLOGICAL: Awake and alert. No obvious cranial nerve deficits. Motor grossly within normal limits. Five out of 5 muscle strength in the arms and legs. Normal speech. PSYCHIATRIC: Appropriate mood and affect; insight and judgment normal. A/P Assessment and Plan Patient is a 66-year-old male with a past medical history significant for atrial fibrillation, hypertension, dyslipidemia, and osteoarthritis admitted for right knee arthroplasty with Dr. Drake. Discharge Planning Discharge home today. Problem List: (1) S/P total knee arthroplasty ICD Codes: Z96.659 - Presence of unspecified artificial knee joint Status: Acute Plan: POD #1 s/p Total right knee arthroplasty by Dr. Drake Weightbearing as tolerated Daily dressing changes Continue Xarelto Follow-up with Dr. Drake in 2 weeks (2) Atrial fibrillation ICD Codes: I48.91 - Unspecified atrial fibrillation Status: Chronic Plan: Continue Xarelto (3) HLD (hyperlipidemia) ICD Codes: E78.5 - Hyperlipidemia, unspecified Status: Chronic Plan: Continue atorvastatin 80 mg by mouth at bedtime (4) HTN (hypertension) ICD Codes: I10 - Essential (primary) hypertension Status: Chronic Plan: Blood pressure stable Continue home dose of lisinopril 20 mg by mouth daily (5) Nutrition, metabolism, and development symptoms ICD Codes: R63.8 - Other symptoms and signs concerning food and fluid intake Plan: Fluids: DC fluids, tolerating PO Electrolytes: wnl Nutrition: Regular Basic Diet DVT PPx: SCD's, resume Xarelto Problem Qualifiers (1) S/P total knee arthroplasty: Qualified Codes: Z96.651 - Presence of right artificial knee joint (2) Atrial fibrillation: Qualified Codes: I48.0 - Paroxysmal atrial fibrillation (3) HLD (hyperlipidemia): Qualified Codes: E78.5 - Hyperlipidemia, unspecified (4) HTN (hypertension): Qualified Codes: I10 - Essential (primary) hypertension Dunia Talley MD, R3 Feb 01, 2017 11:03
[2017-02-01] MEDS ORDERED: MULTIVITAMINS/MINERALS THERAPEUTIC TAB PO SCH (21:00)
[2017-02-01] MEDS ORDERED: DOCUSATE SODIUM 100 MG CAP PO SCH (21:00)
--- NOTE | 2017-02-11 13:21 | MD ---
cc: BELEM ALBARADO M.D. ADMISSION DATE: 01/31/2017 DISCHARGE DATE: 02/01/2017 ADMISSION DIAGNOSIS Severe degenerative osteoarthritis right knee DISCHARGE DIAGNOSIS Severe degenerative osteoarthritis right knee HISTORY OF PRESENT ILLNESS Mr. Pena is a 66-year-old male who presented to the [facility] for evaluation by Dr. Belem Albarado regarding his severe and progressive right knee pain. The patient states the pain has been bothering him for many years and is currently inhibiting his activities of daily living. He notices a severe aching sensation aggravated by weightbearing activities. There are no relieving factors at this point, although in the past he has tried medications, bracing, physical therapy, home exercise program, as well as corticosteroid injections without relief of symptoms. He does have x-ray evidence of severe degenerative osteoarthritis in the right knee. While in the office, the patient was counseled on the diagnosis and treatment options. The risks, benefits, and indications of all were discussed. The patient did elect to proceed with surgical intervention to include a right total knee arthroplasty. Date of surgery 01/31 2017, right total knee arthroplasty. Postop after surgery, the patient admitted to [facility] where he received appropriate medical management, pain control and DVT prophylaxis, as well as physical therapy. DISCHARGE Once being discharged from the hospital, the patient did go home with home health care and home physical therapy. He is in stable condition. He may weight-bear as tolerated. The patient is to receive daily dressing changes and has been instructed on appropriate wound care management. The patient has been provided prescriptions for pain control as well as DVT prophylaxis medication. He has also been provided a follow-up appointment in approximately two weeks from his date of surgery. The patient has asked appropriate questions which have been answered. The patient has been discharged. MD MO Gomez/STEVEN /8:04 AM /1:14 PM
== END 2017-02-01 11:07 | disposition home or self-care (01) | DRG 470 ==
LOC: HSDI 05:05 → N06A 12:29
PROVIDERS: ADMIT Orthopaedic Surgery Sports Medicine; ATTEND Orthopaedic Surgery Sports Medicine
PROC: 3E0T3CZ (ICD-10-PCS; 2017-01-31)
PROC: 0SRC0J9 Replacement of Right Knee Joint with Synthetic Substitute, Cemented, Open Approach (ICD-10-PCS; principal; 2017-01-31 06:46)
DX: M17.11 Unilateral primary osteoarthritis, right knee (principal); I48.0 Paroxysmal atrial fibrillation; I10 Essential (primary) hypertension; E78.5 Hyperlipidemia, unspecified; Z79.01 Long term (current) use of anticoagulants; Z79.899 Other long term (current) drug therapy
CPT/HCPCS: 73560; 80053; 85025; 86850; 86900; 86901; 94150; C1776; C9290; J0171; J0690; J0735; J1100; J1580; J1885; J2405; J2795; J3010; J3370; J7030; J7050; J7120; L1830